=== PATIENT | male | born 1985 | race Caucasian/White ===

== ENCOUNTER 2017-11-05 13:05 | Emergency (ER) | payer SELFPAY ==
[2017-11-05 13:13] VITALS: BP 150/87
--- NOTE | 2017-11-05 13:44 | EDM.PDOC ---
ED HPI GENERAL MEDICAL PROBLEM - General Chief Complaint: ENT Problem Stated Complaint: LEFT EYE INFECTION/Sore throat. Time Seen by Provider: 11/05/17 13:37 Source of Information: Reports: Patient History Limitations: Reports: No Limitations - History of Present Illness INITIAL COMMENTS - FREE TEXT/NARRATIVE: 32-year-old male presents the ED with a four-day history of red left eye with purulent drainage and crusting in the mornings. Does have mild form body sensation believes something may have gone into his eye 4 days ago. He has already an associated upper respiratory tract infection with sore throat and pain in his ears with swallowing. Mild nasal congestion. Minimal cough. Does not wear contact lenses States his left eye vision intermittently will become blurry. Usually can wipe this away however. Onset: Sudden Onset Date: 11/02/17 Duration: Day(s): Location: Reports: Face (Left red eye with purulent drainage and crusting in the mornings.) Quality: Reports: Burning, Other (Discharge from the left eye.) Severity: Moderate Improves with: Reports: None (He has been putting all kinds of official tears and Visine in his eye without relief.) Worsens with: Reports: None Context: Denies: Activity, Exercise, Lifting, Sick Contact, Trauma, Other Associated Symptoms: Reports: Cough, Fever/Chills (Sore throat pain in his ears with swallowing low-grade fever), Other. Denies: Confusion (Mild nonproductive cough), Chest Pain, cough w sputum Treatments [employer]: Reports: NSAIDS (Motrin when necessary) Left Eye Pain Score (Numeric/FACES): 3 Throat Pain Score (Numeric/FACES): 4 - Related Data Allergies Allergy/AdvReac Type Severity Reaction Status Date / Time No Known Allergies Allergy Verified 10/04/15 17:19 Home Meds: Home Meds Amoxicillin/Potassium Clav [Augmentin 500-125 Tablet] 1 each PO BID #16 tablet 11/05/17 [Rx] Buprenorphine [Subutex] 6 mg SL DAILY 11/05/17 [History] Gentamicin [Garamycin 0.3% Ophth Soln] 5 ml TOP QID #1 bottle 11/05/17 [Rx] Past Medical History - Past Health History Medical/Surgical History: Denies Medical/Surgical History - Infectious Disease History Infectious Disease History: Reports: Chicken Pox - Past Surgical History HEENT Surgical History: Reports: Adenoidectomy, Tonsillectomy Musculoskeletal Surgical History: Reports: Other (See Below) Social & Family History - Tobacco Use Smoking Status *Q: Current Every Day Smoker Years of Tobacco use: 10 Packs/Tins Daily: 0.3 Used Tobacco, but Quit: Yes Month Tobacco Last Used: 10/2017 Second Hand Smoke Exposure: No - Caffeine Use Caffeine Use: Reports: Soda - Alcohol Use Days Per Week of Alcohol Use: 0 - Recreational Drug Use Recreational Drug Use: No - Living Situation & Occupation Living situation: Reports: Single Occupation: Employed ED ROS ENT - Review of Systems Review Of Systems: See Below Constitutional: Reports: Fever, Decreased Appetite HEENT: Reports: Ear Pain (With swallowing), Eye Discharge (Left eye for the last 4 days with crusting of the morning.), Throat Pain, Throat Swelling ( Moderate for 4 days feels swollen). Denies: Glasses, Hearing Loss, Nose Pain, Rhinitis, Sinus Problem Respiratory: Reports: Cough. Denies: Shortness of Breath, Wheezing, Pleuritic Chest Pain Cardiovascular: Reports: No Symptoms (Nonproductive for the most part) Endocrine: Reports: No Symptoms GI/Abdominal: Reports: No Symptoms : Reports: No Symptoms Musculoskeletal: Reports: No Symptoms Skin: Reports: No Symptoms Neurological: Reports: No Symptoms Psychiatric: Reports: No Symptoms Hematologic/Lymphatic: Reports: No Symptoms Immunologic: Reports: No Symptoms ED EXAM, ENT - Physical Exam Exam: See Below Exam Limited By: No Limitations General Appearance: Alert, WD/WN, No Apparent Distress, Other (Left eye is obviously quite erythematous.) Eye Exam: Left Eye: Periorbital Changes (Has some swelling of the upper and lower eyelid from edema.), Bilateral Eye: Conjunctival Injection (Both eyes have conjunctival injection the left is just much worse than the right. The right lower blood for margin is very erythematous.), Corneal Abrasion (No corneal abrasions identified on slit lamp exam), Normal Fundi, PERRL Ears: Normal External Exam, Normal TMs Mouth/Throat: Tonsillar Erythema, Tonsillar Exudates, Tonsillar Swelling, Other (Patient has fragments of tonsillar tissue bilaterally worse on the right as compared to the left exudate is mostly confined to the right tonsillar eyelid tissues. The oropharynx itself is quite inflamed and erythematous.) Head: Atraumatic, Normocephalic Neck: Normal Inspection, Supple, Non-Tender, Full Range of Motion, Lymphadenopathy (L), Lymphadenopathy (R) (Mild/moderate submandibular adenopathy on the right side.) Respiratory/Chest: No Respiratory Distress, Lungs Clear, Normal Breath Sounds, Chest Non-Tender Cardiovascular: Normal Peripheral Pulses, Regular Rate, Rhythm, No Edema, No Gallop, No Rub GI/Abdominal: Normal Bowel Sounds, Non-Tender, No Organomegaly Extremities: Normal Inspection, Normal Range of Motion, Non-Tender, No Pedal Edema, Normal Capillary Refill Neurological: Alert, Oriented, CN II-XII Intact, Normal Cognition, Normal Gait Psychiatric: Normal Affect, Normal Mood Skin: Warm, Dry, Intact, Normal Color, No Rash Course - Vital Signs Last Recorded V/S: Last Vital Signs Temp 37.2 C 11/05/17 13:11 Pulse 98 11/05/17 13:11 Resp 18 11/05/17 13:11 BP 150/87 H 11/05/17 13:11 Pulse Ox 98 11/05/17 13:11 - Radiology Interpretation Free Text/Narrative:: 32-year-old male presents the ED with a red left eye primarily for 4 days. He states the right eye is also becoming mildly erythematous as well. Left eye has been stuck shut the last 3 mornings. Usually every other day will change to intermittent throughout the day and he easily improves when he wipes away the mucus. He has an associated upper respiratory tract infection. For throat primarily. Examination reveals bacterial conjunctivitis involving both eyes much worse on the left as compared to the right. The corneas are both clear without any corneal abrasions. Foot up the left upper eyelid and it is extremely erythematous without foreign body identified. Oropharynx shows evidence of previous partial tonsillectomy. He has islands of tonsillar tissue present on the right side. These are infected with exudate. There is only a loose residual upper pole of the tonsil left on the left side. There are oropharynx is diffusely erythematous compatible strep throat. He does have bilateral submandibular adenopathy worse on the right as compared to the left. This is likely the etiology of his eye infection as well. He'll be treated with gentamicin eyedrops 2 drops to the left eye 4 times daily for 3 days advised 2 drops to the right eye now and repeat once again tonight to clear it up. He will start on Augmentin 500 mg twice a day for 7 days to clear up tonsillitis. Motrin 600 mg every 6 hours needed for fever and/or throat pain relief. Follow- up if not markedly improved in 48-72 hours time Departure - Departure Time of Disposition: 13:37 Disposition: Home, Self-Care 01 Condition: Fair Clinical Impression: Bacterial conjunctivitis of left eye, Strep throat - Discharge Information Prescriptions: Amoxicillin/Potassium Clav [Augmentin 500-125 Tablet] 1 each PO BID #16 tablet Gentamicin [Garamycin 0.3% Ophth Soln] 5 ml TOP QID #1 bottle Instructions: Bacterial Conjunctivitis, [id number], Strep Throat, Easy-to- Read Referrals: PCP,None [Primary Care Provider] - Forms: ED Department Discharge Additional Instructions: Evaluation emergency him today in regards to persistent left eye irritation and redness with crusting in the mornings for the last 4 days. No foreign bodies were identified on examination but active infection is evident. There is also mild infection involving the other eye as well. Ears were normal but you have strep throat with pustules on residual tonsil tissue on the right side. Treatment is therefore gentamicin eyedrops 2 drops to each eye the first time. Then 2 drops to the left eye only 4 times daily for the next 3 days to clear up infection. Antibiotic by mouth is Augmentin 500 mg by mouth twice daily for the next 8 days to clear up strep throat. May continue to use Motrin 600 mg every 6 hours needed for sore throat and/or fever. Marked improvement in eye redness and inflammation within the next 24-36 hours and similarly throat should feel much better in 36 hours.
== END 2017-11-05 14:09 | disposition home or self-care (01) ==
LOC: JD.ED 13:05
DX: H10.32 Unspecified acute conjunctivitis, left eye (principal); J03.90 Acute tonsillitis, unspecified
CPT/HCPCS: 99283